=== PATIENT | male | born 1965 | race Caucasian/White ===

== ENCOUNTER → 2017-01-30 | Day surgery (SDC) | payer OTHER ==
[~2017-01-30] VITALS: Ht 185.4 cm; Wt 129.3 kg
[~2017-01-30] MED LIST: 0.9% Sodium Chloride 1,000 ML IV SCH; AMLO10TA3 PO; ASPI-973 PO; HYG25 PO; INSU300I SQ; INSU500I SQ; LISI40TA PO; METF500T4 PO; OMEP20CA11 PO; Sodium Chloride LOK Flush 10 mL Syringe IV PRN; TAMS0.4C98 PO; fentaNYL-PF 50 mCg/mL 2 mL Inj IVPUSH PRN
[2017-01-30 08:36] VITALS: BP 162/69; PULSE 62; RESP 14; O2SAT 98
[2017-01-30 09:44] VITALS: BP 142/77; PULSE 68; RESP 16; O2SAT 95
[2017-01-30 09:54] VITALS: BP 130/66; PULSE 64; RESP 16; O2SAT 96
[2017-01-30 10:03] VITALS: BP 121/66; PULSE 65; RESP 16; O2SAT 96
--- NOTE | 2017-01-30 11:17 | ENDO ---
[address] [address] ENDOSCOPY PROCEDURE PATIENT: JASMEET SAENZ : 1965 MR#: [id number] ADMIT: 01/30/2017 JOB ID: [id number] DATE: 01/30/2017 TYPE OF OPERATION: Esophagogastroduodenoscopy with biopsy and colonoscopy with snare polypectomy and colonoscopy biopsy. PREOPERATIVE DIAGNOSIS(ES): Epigastric pain, early satiety and colorectal cancer screening. POSTOPERATIVE DIAGNOSIS(ES): 1. Gastric nodule 3 mm in the antrum status post biopsy. 2. Two polyps were seen, one in the rectum 2 mm removed by cold biopsy forceps and the second one is a 4 mm polyp transverse colon removed by hot snare polypectomy. ANESTHESIA: Fentanyl and Versed were used. COMPLICATIONS: None. BLOOD LOSS: Minimal. DESCRIPTION OF PROCEDURE: After risks and benefits were explained to the patient, informed consent was obtained. After anesthesia administered, an upper endoscope was then inserted into the esophagus, stomach, second portion of duodenum. Mucosa carefully examined. After procedure was done, the scope was withdrawn and procedure terminated. Colonoscope was then inserted from the rectum to the cecum. Mucosa carefully examined. Prep of the patient was excellent. After the procedure was done, the scope was withdrawn and procedure terminated. FINDINGS: Upon inspection of the esophagus, the esophagus was normal without masses, ulcers or lesions. Z-line located 45 cm from the incisors. Upon entering the stomach, there was a gastric nodule seen in the antrum which was biopsied. No other masses or ulcers were seen. Retroflexion normal. Duodenal bulb, first and second portion normal. Biopsy taken in the duodenum, antrum, body and gastric nodule. Upon inspection of the anus, no masses, hemorrhoids, ulcers, fissures that were seen. Throughout the entire examination, there was a 2 mm rectal polyp, removed by cold biopsy forceps. There is also a 4 mm transverse colon polyp, removed by hot snare polypectomy. Retroflexion was normal. IMPRESSIONS: 1. Gastric nodule status post biopsy. 2. A 4 mm transverse colon polyp, removed by hot snare polypectomy. 3. A 2 mm rectal polyp, removed by cold biopsy forceps. RECOMMENDATION: Await pathology results. If tubular adenoma, then repeat colonoscopy in five years.
--- NOTE | 2017-02-04 17:15 | PATH ---
SURGICAL PATHOLOGY Attending Physician:Abhishek Verdin MD CASE STATUS: Signed Out PATIENT NAME: JASMEET SAENZ PID: [id number] : 1965 DATE COLLECTED:01/30/2017 20:02 SPECIMEN: 1: Duodenum, Biopsy 2: Stomach, Antrum, Biopsy 3: Gastric, Biopsy 4: Gastric, Biopsy 5: Colon, Polyp 6: Rectum, Biopsy CLINICAL HISTORY: 1). DUODENAL BIOPSY 2). ANTRUM BIOPSY 3). GASTRIC BODY BIOPSY 4). GASTRIC NODULE BIOPSY 5). TRANSVERSE POLYP X 1 6). RECTAL POLYP X 1 FINAL DIAGNOSIS: 1.DUODENUM, BIOPSY: DUODENAL MUCOSA WITH NO DIAGNOSTIC ABNORMALITY. Negative for active inflammation, features of sprue, dysplasia, and malignancy. 2.ANTRUM, BIOPSY: GASTRIC ANTRAL MUCOSA WITH CHRONIC GASTRITIS. Negative for Helicobacter organisms by immunohistochemistry. Negative for intestinal metaplasia. Negative for dysplasia and malignancy. 3.GASTRIC BODY, BIOPSY: GASTRIC BODY MUCOSA WITH NO DIAGNOSTIC ABNORMALITY. Negative for Helicobacter organisms. Negative for intestinal metaplasia. Negative for dysplasia and malignancy. 4.GASTRIC NODULE, BIOPSY: FEATURES OF HYPERPLASTIC GASTRIC POLYP. Negative for Helicobacter organisms. Negative for intestinal metaplasia. Negative for dysplasia and malignancy. 5.TRANSVERSE COLON POLYP, BIOPSY: TUBULAR ADENOMA. 6.RECTAL POLYP, BIOPSY: TUBULAR ADENOMA. ICD10 R10.13 D12.6 GROSS DESCRIPTION: The specimens are received in formalin, labeled with the patient's name, and sublabeled as the following: (1) duo; (2) antrum; (3) body; (4) nodule; (5) trans; (6) rectal. (1) The specimen consists of multiple fragments of cannon glistening semitranslucent tissue (0.6 x 0.2 x 0.1 cm in aggregate). Section code: (1A) tissue. Specimen entirely submitted. (2) The specimen consists of multiple fragments of cannon glistening semitranslucent tissue (0.8 x 0.3 x 0.1 cm in aggregate). Section code: (2A) tissue. Specimen entirely submitted. (3) The specimen consists of a fragment of cannon glistening semitranslucent tissue (0.8 x 0.2 x 0.1 cm). Section code: (3A) tissue. Specimen entirely submitted. (4) The specimen consists of a fragment of cannon glistening semitranslucent tissue (0.3 x 0.2 x 0.1 cm). Section code: (4A) tissue. Specimen entirely submitted. (5) The specimen consists of multiple fragments of cannon glistening semitranslucent tissue (0.6 x 0.4 x 0.1 cm). Section code: (5A) tissue. Specimen is entirely submitted. (6) The specimen consists of a fragment of cannon glistening semitranslucent tissue (0.3 x 0.2 x 0.1 cm). Section code: (6A) tissue. Specimen entirely submitted. 01/31/17 JM MICRO DESCRIPTION: 2. An immunohistochemical stain was performed to evaluate for Helicobacter organisms and is negative. A control stain showed appropriate reactivity. This test was developed and its performance characteristics determined by [facility]. It has not been cleared or approved by the [place]. Food and Drug Administration. The FDA has determined that such clearance or approval is not necessary. This test is used for clinical purposes. It should not be regarded as investigational or for research. ICD-9 CODES: CPT CODES: 1: 97360 2: 94909, 25666 3: 49230 4: 67085 5: 92749 6: 19271 Electronically Signed Out Peter Bean MD, Ph.D. [facility] [address], [place] [address] Technical component performed at [facility], [facility] [address], [place], [address]
== END | disposition home or self-care (01) ==
LOC: END 00:10
PROVIDERS: ATTEND Internal Medicine Gastroenterology
DX: Z12.11 Encounter for screening for malignant neoplasm of colon (principal); D12.3 Benign neoplasm of transverse colon; D12.8 Benign neoplasm of rectum; K29.50 Unspecified chronic gastritis without bleeding; K31.7 Polyp of stomach and duodenum; R10.13 Epigastric pain; R68.81 Early satiety; I10 Essential (primary) hypertension; E11.9 Type 2 diabetes mellitus without complications; E66.01 Morbid (severe) obesity due to excess calories; G47.33 Obstructive sleep apnea (adult) (pediatric); Z79.4 Long term (current) use of insulin; Z79.84 Long term (current) use of oral hypoglycemic drugs; Z68.41 Body mass index [BMI] 40.0-44.9, adult
CPT/HCPCS: 43239; 45380; 45385; 99153; G0500; J2250; J3010; J7030